=== PATIENT | male | born 1995 | race American Indian/Alaskan Native ===

== ENCOUNTER 2019-12-12 21:03 | Emergency (ER) | payer SELFPAY ==
[2019-12-12 21:32] VITALS: BP 123/68
--- NOTE | 2019-12-12 21:49 | Emergency Department Report ---
Blank Doc - Documentation Documentation: 24-year-old male that presents with right leg lac. This initial assessment/diagnostic orders/clinical plan/treatment(s) is/are subject to change based on patient's health status, clinical progression and re- assessment by fellow clinical providers in the ED. Further treatment and workup at subsequent clinical providers discretion. Patient/guardians urged not to elope from the ED as their condition may be serious if not clinically assessed and managed. Initial orders include: 1- Patient sent to [facility] for further evaluation and treatment 2- denies UTD with tetanus
[2019-12-12] MEDS: TETANUS,DIPH,PERTUSS(ACELL) VACCINE 0.5 ML SYRINGE IM ONE (22:31)
[2019-12-13] MEDS: IBUPROFEN 600 MG TAB PO ONE (00:01)
[2019-12-13] MEDS: LIDOCAINE-MPF (1%) 10 MG/1 ML VIAL 5 ML INFILTRATI ONE (00:04)
--- NOTE | 2019-12-13 00:50 | Emergency Department Report ---
ED Fall HPI - General Chief Complaint: Wound/Laceration Stated Complaint: RT LEG LACERATION Time Seen by Provider: 12/12/19 21:48 Source: patient Mode of arrival: Ambulatory - History of Present Illness Initial Comments: This is a 24-year-old male who presented to the ED with painful bleeding anterior left lower leg laceration after he slipped and fell into a hole on the ground while walking home from a gymnasium 3 hours ago. Patient states that the pain and the bleeding has been persistent. Patient denies numbness and tingling or weakness of right leg, dizziness, syncope, seizures, loss of consciousness, head or neck injuries, back pain or hip pain, change in vision, or chest pain. Patient states that he is not up-to-date with his tetanus vaccinations. MD Complaint: fall, other (right lower leg laceration with food) -: Sudden, hour(s) (3) Fall From: standing, other (walking, tripped and fell into a hole on ground) When Fall Occurred: 1-3 hours [employer] Fall Witnessed: no Place Fall Occurred: street Loss of Consciousness: none Prolonged Down Time?: no Symptoms Prior to Fall: none Location: other (right lower leg) Location - Extremities: Right: Leg (anterior right lower leg ) Severity: severe Severity scale (0 -10): 7 Quality: sharp, aching Context: tripped/slipped Associated Symptoms: denies. denies: headache, neck pain, numbness, chest paint, shortness of breath, abdominal pain, hematuria, lightheaded, vertigo - Related Data Previous Rx's Medication Instructions Recorded Last Taken Type Ibuprofen [Motrin] 800 mg PO Q8HR PRN #24 tablet 12/13/19 Unknown Rx cephALEXin [Keflex] 500 mg PO Q8HR #30 cap 12/13/19 Unknown Rx Allergies Allergy/AdvReac Type Severity Reaction Status Date / Time No Known Allergies Allergy Unverified 12/12/19 21:50 ED Review of Systems ROS: Stated complaint: RT LEG LACERATION Other details as noted in HPI Constitutional: denies: chills, fever Eyes: denies: eye pain, eye discharge, vision change ENT: denies: ear pain, throat pain Respiratory: denies: cough, shortness of breath, wheezing Cardiovascular: denies: chest pain, palpitations Endocrine: no symptoms reported Gastrointestinal: denies: abdominal pain, nausea, diarrhea Genitourinary: denies: urgency, dysuria Musculoskeletal: arthralgia (anterior right lower leg pain due to a bleeding laceration). denies: back pain, joint swelling Skin: other (Bleeding laceration on anterior right lower leg). denies: rash, lesions Neurological: denies: headache, weakness, paresthesias Psychiatric: denies: anxiety, depression Hematological/Lymphatic: denies: easy bleeding, easy bruising ED Past Medical Hx - Past Medical History Previous Medical History?: No - Surgical History Past Surgical History?: No - Social History Smoking Status: Never Smoker Substance Use Type: None - Medications Home Medications: Home Medications Medication Instructions Recorded Confirmed Last Taken Type Ibuprofen [Motrin] 800 mg PO Q8HR PRN #24 tablet 12/13/19 Unknown Rx cephALEXin [Keflex] 500 mg PO Q8HR #30 cap 12/13/19 Unknown Rx ED Physical Exam - General Limitations: No Limitations General appearance: alert, in no apparent distress - Head Head exam: Present: atraumatic, normocephalic, normal inspection - Eye Eye exam: Present: normal appearance, PERRL, EOMI Pupils: Present: normal accommodation - ENT ENT exam: Present: normal exam, normal orophraynx, mucous membranes moist, TM's normal bilaterally - Neck Neck exam: Present: normal inspection, full ROM. Absent: tenderness - Respiratory Respiratory exam: Present: normal lung sounds bilaterally. Absent: respiratory distress, wheezes, rales, rhonchi, chest wall tenderness, accessory muscle use, prolonged expiratory - Cardiovascular Cardiovascular Exam: Present: regular rate, normal rhythm, normal heart sounds. Absent: systolic murmur, diastolic murmur, rubs, gallop - GI/Abdominal GI/Abdominal exam: Present: soft, normal bowel sounds. Absent: tenderness, hyperactive bowel sounds, hypoactive bowel sounds - Extremities Exam Extremities exam: Present: normal inspection, full ROM, tenderness (Palpable localized anterior right lower leg tenderness due to a bleeding 6 and with a laceration), normal capillary refill - Back Exam Back exam: Present: normal inspection, full ROM. Absent: tenderness, muscle spasm, paraspinal tenderness - Neurological Exam Neurological exam: Present: alert, oriented X3, CN II-XII intact, normal gait, r eflexes normal - Psychiatric Psychiatric exam: Present: normal affect, normal mood - Skin Skin exam: Present: warm, dry, intact, normal color, other (Bleeding 6 cm laceration on anterior right lower leg). Absent: rash ED Course Vital Signs 12/12/19 12/12/19 21:29 21:48 Temperature 98.8 F 98.8 F Pulse Rate 89 89 Respiratory 18 18 Rate Blood Pressure 123/68 123/68 O2 Sat by Pulse 97 99 Oximetry - Laceration /Wound Repair Right Anterior Calf Wound Location: lower extremity (anterior right lower leg) Wound Length (cm): 6 Wound's Depth, Shape: irregular Wound Explored: contaminated Irrigated w/ Saline (ccs): 50 Betadine Prep?: Yes Anesthesia: 1% Lidocaine Volume Anesthetic (ccs): 10 Wound Debrided: extensive Wound Repaired With: sutures Suture Size/Type: 3:0, proline Number of Sutures: 13 Layer Closure?: No Sterile Dressing Applied?: Yes Progress: Patient tolerated the procedure well. The wound was cleaned thoroughly, and sutured per protocol. The wound was then dressed appropriately and the patient discharged home on prophylactic antibiotics and pain medications. Patient was advised return to the ED immediately if symptoms get worse, otherwise return to the ED or to his primary care physician in 12 to 14 days for suture removal. ED Medical Decision Making - Medical Decision Making This is a 24-year-old male who presented to the ED with painful bleeding ante rior left lower leg laceration after he slipped and fell into a hole on the ground while walking home from a gymnasium 3 hours ago. Patient states that the pain and the bleeding has been persistent. In the ED, patient is alert and oriented x3 and is not in distress. Patient was treated for pain in the ED and also given tetanus vaccination. The right lower leg bleeding laceration was cleaned thoroughly and sutured per protocol. Patient tolerated the procedure well and the wound was cleaned after the procedure and dressed appropriately. Patient was discharged home on pain medications and prophylactic antibiotics advised to follow-up with his primary care physician in 5 to 7 days for reevaluation or return to the ED immediately if symptoms get worse. Patient was otherwise advised to return to the ED or to his primary care physician in 12 to 14 days for suture removal. - Differential Diagnosis laceration; puncture wound; leg contusion Critical care attestation.: If time is entered above; I have spent that time in minutes in the direct care of this critically ill patient, excluding procedure time. ED Disposition Clinical Impression: Contusion of right lower leg, initial encounter Laceration of right lower leg Qualifiers: Encounter type: initial encounter Qualified Code(s): S81.811A - Laceration without foreign body, right lower leg, initial encounter Disposition: TO HOME OR SELFCARE Is pt being admited?: No Does the pt Need Aspirin: No Condition: Stable Instructions: Contusion in Adults (ED), Laceration (ED), Suture Care (ED) Additional Instructions: Take medication with food, drink plenty of fluids and follow-up with your primary care physician in 7 to 10 days for reevaluation. Return to the ED immediately if symptoms get worse. Otherwise return to the ED or to your primary care physician in 12 to 14 days for suture removal. Prescriptions: cephALEXin [Keflex] 500 mg PO Q8HR #30 cap Ibuprofen [Motrin] 800 mg PO Q8HR PRN #24 tablet PRN Reason: Pain , Severe (7-10) Referrals: PRIMARY CARE, [Primary Care Provider] - 3-5 Days Forms: Work/School Release Form(ED) Time of Disposition: 00:55 Print Language: BENGALI
== END 2019-12-13 01:05 | disposition home or self-care (01) ==
LOC: ED 21:03
DX: S81.811A Laceration without foreign body, right lower leg, initial encounter (principal); Z79.1 Long term (current) use of non-steroidal anti-inflammatories (NSAID); Z79.899 Other long term (current) drug therapy; W17.2XXA Fall into hole, initial encounter; Y93.01 Activity, walking, marching and hiking; Y92.89 Other specified places as the place of occurrence of the external cause; Y99.8 Other external cause status
CPT/HCPCS: 90471; 90715